=== PATIENT | female | born 1980 | race Caucasian/White ===

== ENCOUNTER 2020-07-19 06:48 | Day surgery (SDC) | payer OTHER ==
[2020-07-19] MEDS ORDERED: PROPOFOL INJ 200 MG/20 ML VIAL IV ONE (07:02)
[2020-07-19 08:51] VITALS: BP 139/88
--- NOTE | 2020-07-19 11:54 | Operative Report ---
Operative Report DATE OF SURGERY: 07/19/20 Operative Report: The risk, benefits and alternatives of the procedure including the risk of bleeding, perforation requiring surgery have been explained to the patient in detail and informed consent has been obtained. The patient is taken back to the operating room and placed in the left, lateral decubital position. Timeout was called. Propofol medication is administered. Rectal examination is done which did not reveal any masses, tears or fissures. An Olympus videoscope was introduced into the patient's rectum. The scope was then carefully advanced all the way to the cecum. The cecum was identified by the usual anatomical landmarks including the ileocecal valve as well as the appendiceal office. Photodocumentation is obtained. Scope was then sequentially pulled back via the various segments of the colon including the ascending colon, back flexure, transverse colon, splenic flexure, descending colon finally in to the rectosigmoid portions of the colon. Retroflexion maneuver is performed. PREOPERATIVE DIAGNOSIS: Colorectal cancer screening POSTOPERATIVE DIAGNOSIS: Normal screening colonoscopy OPERATION: Diagnostic colonoscopy SURGEON: MATTHEW CANALES ANESTHESIA: LMAC TISSUE REMOVED OR ALTERED: As noted above. COMPLICATIONS: None. ESTIMATED BLOOD LOSS: None. INTRAOPERATIVE FINDINGS: As noted above. PROCEDURE: Patient tolerated the procedure well. No immediate postprocedure complications are noted. Patient is discharged in good condition. Discharge date . Discharge diet: Regular. Discharge activity: Regular. 2 to 3-week follow-up to discuss findings. If there is a family history 5-year surveillance colonoscopy otherwise 10-year surveillance is indicated
== END 2020-07-19 08:42 | disposition home or self-care (01) ==
LOC: OROUT 06:48
PROVIDERS: ATTEND Internal Medicine Gastroenterology
DX: K92.1 Melena (principal); Z86.010 Personal history of colon polyps; Z79.899 Other long term (current) drug therapy; E66.9 Obesity, unspecified; J30.2 Other seasonal allergic rhinitis; Z90.710 Acquired absence of both cervix and uterus; Z68.34 Body mass index [BMI] 34.0-34.9, adult
CPT/HCPCS: 45378; 00812; J2704; 812